=== PATIENT | male | born 1985 | race Caucasian/White ===

== ENCOUNTER 2024-01-28 15:47 | Emergency (ER) | payer SELFPAY ==
[~2024-01-28] VITALS: Ht 172.7 cm; Wt 72.6 kg
[2024-01-28] MEDS ORDERED: methylPREDNISolone sod succ 125 MG VIAL IM ONE (16:40)
[2024-01-28] MEDS ORDERED: PREDNISONE20 M1 PO (16:40)
== END 2024-01-28 16:46 | disposition home or self-care (01) ==
LOC: ED 15:47
DX: M25.571 Pain in right ankle and joints of right foot (principal); R23.4 Changes in skin texture